=== PATIENT | female | born 1955 | race American Indian/Alaskan Native ===

== ENCOUNTER 2020-01-06 21:09 | Emergency (ER) | payer SELFPAY ==
[2020-01-06 21:31] VITALS: BP 111/47
--- NOTE | 2020-01-06 21:33 | Emergency Department Report ---
ED Syncope HPI - General Chief Complaint: Syncope Stated Complaint: WEAKNESS Time Seen by Provider: 01/06/20 21:28 - History of Present Illness Initial Comments: Patient is 64 years old female with no significant past medical history. Patient brought to the emergency room via EMS from grocery store after patient fainted. Patient stated that she was standing smoking cigarettes when she felt fainted. Patient denied any loss of consciousness or head injury. Patient stated that this is happened to her several times before when she smokes cigarettes. Patient stated that she is back to normal. Patient is alert, oriented x3 and able to make a sound decision. Patient stated that she does not want any treatment and she want to sign AMA. I explained to the patient that this is might be a serious problem that might lead to patient still stated that she is not interested in treatment and she will follow-up with her primary care physician. I informed her that she can come back at any time or she can go to another ER if she wants. Patient left AMA. Timing/Prior Episodes: recent history, remote history Precipitating Factors: Positive: lightheadedness Context: standing Loss of Consciousness: no loss of consciousness Current Symptoms: back to normal - Related Data Allergies/Adverse Reactions: Allergies No Known Allergies Allergy (Unverified 01/06/20 21:15) ED Review of Systems ROS: Stated complaint: WEAKNESS Other details as noted in HPI Comment: All other systems reviewed and negative Constitutional: denies: chills, fever Respiratory: denies: cough, shortness of breath, SOB with exertion Gastrointestinal: denies: abdominal pain Neurological: denies: headache, weakness, numbness, paresthesias, confusion, abnormal gait, vertigo Psychiatric: denies: anxiety, depression, auditory hallucinations, visual hallucinations, homicidal thoughts, suicidal thoughts ED Past Medical Hx - Past Medical History Previous Medical History?: Yes Hx of Cancer: Yes (ovarian) Additional medical history: colon polyps - Surgical History Additional Surgical History: hysterectomy - Social History Smoking Status: Current Every Day Smoker Substance Use Type: Alcohol ED Physical Exam - General Limitations: No Limitations General appearance: alert, in no apparent distress - Head Head exam: Present: atraumatic, normocephalic, normal inspection - Eye Eye exam: Present: normal appearance, PERRL - ENT ENT exam: Present: normal exam, normal orophraynx, mucous membranes moist - Neck Neck exam: Present: normal inspection, full ROM. Absent: tenderness, meningismus - Respiratory Respiratory exam: Present: normal lung sounds bilaterally - Cardiovascular Cardiovascular Exam: Present: regular rate, normal rhythm, normal heart sounds - GI/Abdominal GI/Abdominal exam: Present: soft, normal bowel sounds. Absent: distended, tenderness, guarding, rebound, rigid, pulsatile mass - Extremities Exam Extremities exam: Present: normal inspection, full ROM, normal capillary refill. Absent: calf tenderness - Back Exam Back exam: Present: normal inspection, full ROM. Absent: CVA tenderness (R), CVA tenderness (L) - Neurological Exam Neurological exam: Present: alert, oriented X3, CN II-XII intact, reflexes normal. Absent: motor sensory deficit - Skin Skin exam: Present: warm, intact, normal color ED Course Vital Signs 01/06/20 21:15 Temperature 98.6 F Pulse Rate 87 Respiratory 18 Rate Blood Pressure 125/63 O2 Sat by Pulse 100 Oximetry ED Medical Decision Making - Medical Decision Making Patient is 64 years old female with no significant past medical history. Patient brought to the emergency room via EMS from grocery store after patient fainted. Patient stated that she was standing smoking cigarettes when she felt fainted. Patient denied any loss of consciousness or head injury. Patient stated that this is happened to her several times before when she smokes cigarettes. Patient stated that she is back to normal. Patient is alert, oriented x3 and able to make a sound decision. Patient stated that she does not want any treatment and she want to sign AMA. I explained to the patient that this is might be a serious problem that might lead to patient still stated that she is not interested in treatment and she will follow-up with her primary care physician. I informed her that she can come back at any time or she can go to another ER if she wants. No criteria for involuntary hold. Patient left AMA. Critical care attestation.: If time is entered above; I have spent that time in minutes in the direct care of this critically ill patient, excluding procedure time. ED Disposition Clinical Impression: Syncope Disposition: DC-07 LEFT AGAINST MED ADVICE Is pt being admited?: No Condition: Stable Instructions: Syncope (ED) Referrals: [facility] [Provider Group] - 3-5 Days Forms: AMA Form
== END 2020-01-06 22:30 | disposition left against medical advice (07) ==
LOC: ED 21:09
DX: R55 Syncope and collapse (principal); F17.200 Nicotine dependence, unspecified, uncomplicated; Z90.710 Acquired absence of both cervix and uterus